=== PATIENT | male | born 1995 | race Caucasian/White ===

== ENCOUNTER 2022-10-19 02:10 | Outpatient (CLI) | payer MEDICAID, SELFPAY ==
[2022-10-19 09:12] LABS: Calculated LDL 93 mg/dL (<100); Cholesterol 179 mg/dL (<200); HDL Cholesterol 38 mg/dL (40-60); Triglyceride 243 mg/dL (<150)
== END 2022-10-19 02:11 | disposition home or self-care (01) ==
LOC: LBO 02:11
PROVIDERS: PCP Nurse Practitioner Family; Visit Provider Nurse Practitioner Family
DX: Z13.220 Encounter for screening for lipoid disorders (principal); Z13.1 Encounter for screening for diabetes mellitus
CPT/HCPCS: 36415; 80061; 83036